=== PATIENT | male | born 1970 | race Two or more races ===

== ENCOUNTER 2020-11-08 17:05 | Outpatient (REF) | payer OTHER, SELFPAY | END 2020-11-08 17:06 | disposition home or self-care (01) | LOC: HO.LAB 17:05 | PROVIDERS: Visit Provider Internal Medicine | DX: Z20.828 Contact with and (suspected) exposure to other viral communicable diseases (principal) | CPT/HCPCS: C9803; U0003 ==

== ENCOUNTER 2022-03-21 11:58 | Emergency (ER) | payer OTHER, SELFPAY ==
[2022-03-21 13:23] VITALS: BP 113/67; PULSE 105; RESP 18; TEMP 36.1; O2SAT 96; BMI 29.5
[2022-03-21] MEDS: Ketorolac Tromethamine 30 MG/ML VIAL IM (14:31)
--- NOTE | 2022-03-21 14:41 | ED.GENADULT ---
HPI - General Adult General Chief complaint: Back Pain/Injury Stated complaint: back pain Time Seen by Provider: 03/21/22 14:19 Source: patient Mode of arrival: ambulatory Limitations: no limitations History of Present Illness HPI narrative: 51-year-old male with past medical history of disc herniation presents to ED for back pain after trying to pull something out of the trunk. Patient states he was bending over in his trunk and when the backed up to straight position grabbing objects he felt sudden back pain. Patient denies any blunt trauma to the back, 4th to the ground, abdominal pain, nausea, vomiting, flank pain, fever, chills, hematuria, testicular pain, or dysuria Related Data Previous Rx's Medication Instructions Recorded cyclobenzaprine 10 mg tablet 10 mg PO TID PRN 7 Days #21 tab 03/21/22 ketorolac 10 mg tablet 10 mg PO Q6H 5 Days #20 tab 03/21/22 prednisone 20 mg tablet 40 mg PO DAILY 5 Days #10 tab 03/21/22 Allergies Allergy/AdvReac Type Severity Reaction Status Date / Time No Known Allergies Allergy Verified 03/21/22 13:22 Review of Systems Review of Systems: Back pain Yes all other systems are reviewed and are negative PMFSH Social History Social History Advance Directives: No Advance Directives Information Provided: No Physical Exam ED Vital Signs: Vital Signs - 24 hr 03/21/22 13:23 Temperature 97 F Pulse Rate 105 H Respiratory Rate 18 Blood Pressure 113/67 Pulse Oximetry 96 BMI result Body Mass Index 29.5 Const General: cooperative, healthy appearing, comfortable, no acute distress, well developed, alert, awake and Physically active Orientation/consciousness: oriented to time and patient oriented x3 Eyes General: appearance normal, both eyes and all related structures Neck Neck: Yes normal visual inspection, Yes full ROM, Yes no lymphadenopathy, Yes no meningeal signs, Yes trachea midline, Yes supple, No anterior neck swelling and No tender Chest Chest palpation & inspection: normal inspection of the chest and normal palpation of entire chest wall Resp Effort & Inspection: normal respiratory effort and able to speak in complete sentences Cardio Jugular venous distension: no JVD Heart sounds: S1 normal heart sound present and S2 normal heart sound present GI Inspection: Yes normal to inspection and No abdominal wall ecchymosis Palpation (GI): Soft to palpation, not firm, nontender, no guarding and not rigid General: No CVA tenderness and Yes no CVA tenderness Back/Spine/Pelvis Other: Positive for back pain on range of motion. Back: no CVA tenderness, No CVA tenderness and back tenderness ( left lumBar) Skin General skin exam: no rashes or lesions noted and elasticity normal Neuro General: oriented to time, patient oriented x3, gait normal and no meningeal signs Cranial nerves: Yes CN's II-XII intact bilaterally Extrem General: Yes normal to inspection and Yes full ROM Psych Appearance: grossly normal, well kempt and not disheveled Course Course Course Narrative: No need for repeat imaging. No blunt trauma to the back or abdomen. History of known disc herniation. Pain med ordered. Reevaluation(s) Reevaluation #1: Pain improved after receiving Toradol. Patient is safe for discharge. Time: 14:48 Medical Decision Making [facility] Narrative Medical decision making narrative: Back pain Discharge Plan Discharge Clinical Impression: Lumbar radiculopathy, Back strain Patient Disposition: Home, Self-Care Instructions: Muscle Strain (DC), Lumbar Radiculopathy (ED) Additional Instructions: Se le donald? de kaitlynn con analg?sicos, relajantes musculares y esteroides. Regrese al servicio de urgencias de inmediato por cualquier incontinencia urinaria/intestinal, entumecimiento/hormigueo/par?lisis de las extremidades inferiores, dolor abdominal, disuria, hematuria, dolor en el costado, fiebre, escalofr?os, incapacidad para caminar o cualquier otro s?ntoma preocupante. Por favor, loretta un seguimiento con el proveedor de atenci?n primaria. Prescriptions: New ketorolac 10 mg tablet 10 mg PO Q6H 5 Days Qty: 20 0RF Rx Instructions: Patient received toradol 30mg IM in the ED. prednisone 20 mg tablet 40 mg PO DAILY 5 Days Qty: 10 0RF cyclobenzaprine 10 mg tablet 10 mg PO TID PRN (Reason: muscle spasm) 7 Days Qty: 21 0RF Rx Instructions: side effect is drowsiness. Do not take at work or while driving. Interventions: ED Discharge Assessment Last Done: 03/21/22 15:11 Discharge Date/Time: 03/21/22 15:12 Print Language: Anguillan
== END 2022-03-21 15:12 | disposition home or self-care (01) ==
PROVIDERS: Emergency Provider Emergency Medicine; PCP Internal Medicine
DX: S39.012A Strain of muscle, fascia and tendon of lower back, initial encounter (principal); M54.16 Radiculopathy, lumbar region; X50.9XXA Other and unspecified overexertion or strenuous movements or postures, initial encounter; Y93.9 Activity, unspecified; Y92.9 Unspecified place or not applicable; Y99.9 Unspecified external cause status
CPT/HCPCS: 96372; 99282; 99284; J1885

== ENCOUNTER 2022-04-01 11:00 | Outpatient (RCR) | payer OTHER, SELFPAY | END 2022-04-05 08:09 | disposition home or self-care (01) | LOC: HO.PT 11:00 | PROVIDERS: PCP Internal Medicine; Visit Provider Internal Medicine | DX: M25.561 Pain in right knee (principal) | CPT/HCPCS: 97110; 97140; 97162 ==

== ENCOUNTER 2022-06-20 09:38 | Outpatient (REF) | payer OTHER, SELFPAY ==
--- NOTE | ~2022-06-20 | XR_ITS ---
EXAMINATION: XR lumbar spine 4V min CLINICAL INFORMATION: Reason for Exam LUMBAGO WITH SCIATICA LEFT SIDE COMPARISON: None TECHNIQUE: 5 views of the lumbar spine FINDINGS: 5 nonrib-bearing lumbar-type vertebral bodies. Vertebral body heights are maintained. Grade 1 retrolisthesis of L2 on L3 and L4 on L5. No pars defects. Moderate multilevel degenerative disc disease with loss of disc space height, facet arthropathy and disc osteophyte complexes. This is worst at L4-L5. Paravertebral soft tissues are unremarkable. XR/XR lumbar spine 4V min IMPRESSION: * Moderate spondylosis of the lumbar spine, as above detailed. * Spondylolisthesis, as above detailed.
[2022-06-20 09:58] LABS: MANUAL DIFF FLAG NO
[2022-06-20 10:37] LABS: Basophils Absolute Auto 0.1 X10*3/uL (0.0-0.2); Basophils Percent Auto 1.3 % (0-2); Eosinophils Absolute Auto 0.2 X10*3/uL (0.0-0.4); Hematocrit 42.4 % (42.0-52.0); Hemoglobin 14.5 g/dl (14.0-18.0); Imm Gran Abs Auto 0.04 X10*3/uL (0.00-0.03); Imm Gran Pct Auto 0.7 % (0.0-0.4); Lymphocytes Absolute Auto 1.1 X10*3/uL (1.2-4.9); Lymphocytes Percent Auto 18.4 % (20-40); Mean Corpuscular HGB Conc 34.2 g/dl (31.0-36.0); Mean Corpuscular Volume 90.6 fL (80.0-98.0); Mean Platelet Volume 10.3 fL (9.4-12.4); Monocytes Absolute Auto 0.6 X10*3/uL (0.1-1.2); Monocytes Percent Auto 9.9 % (2-11); Neutrophils Absolute Auto 3.9 x10*3/uL (2.0-8.3); Neutrophils Percent Auto 65.7 % (45-73); Platelet Count 299 X10*3/uL (160-400); Red Blood Count 4.68 X10*6/uL (4.60-5.80); Red Cell Distribution Width 11.9 % (11.0-16.0); White Blood Count 5.9 X10*3/uL (4.8-10.8)
[2022-06-20 10:44] LABS: Estimated Average Glucose 143 mg/dL; Hemoglobin A1c % 6.6 %
[2022-06-20 11:15] LABS: Creatinine Urine 154.13 mg/dL; Microalbum/Creatinine Ratio Ur 9.7 ug/mg cr
[2022-06-20 11:21] LABS: Alanine Aminotransferase 116 U/L (0-40); Albumin Level 4.9 g/dL (3.5-5.0); Alkaline Phosphatase 82 U/L (39-117); Anion Gap 17 (12-20); Aspartate Amino Transferase 62 U/L (5-37); Bilirubin Direct 0.3 mg/dL (0.0-0.5); Bilirubin Total 0.8 mg/dL (0.0-1.0); Blood Urea Nitrogen 18 mg/dL (9-16); Calcium 9.9 mg/dL (8.4-10.2); Carbon Dioxide 29 mmol/L (22-29); Chloride 99 mmol/L (96-108); Cholesterol 260 mg/dL; Estimated Glomerular Filt Rate > 60; Glucose Random 129 mg/dL (60-115); HDL Cholesterol 53 mg/dL; LDL Cholesterol Calculated 171 mg/dl; Potassium 5.7 mmol/L (3.3-5.1); Sodium 139 mmol/L (135-145); Total Protein 7.5 g/dL (6.5-8.0); Triglycerides 182 mg/dL
[2022-06-20 11:37] LABS: Vitamin D 25-OH Total 28.3 ng/mL (>30)
== END 2022-06-20 09:39 | disposition home or self-care (01) ==
LOC: HO.XRAY 09:38
PROVIDERS: PCP Internal Medicine; Visit Provider Internal Medicine
DX: Z00.00 Encounter for general adult medical examination without abnormal findings (principal); M54.42 Lumbago with sciatica, left side
CPT/HCPCS: 36415; 72110; 80048; 80061; 80076; 82043; 82306; 83036; 85025

== ENCOUNTER 2024-06-03 13:16 | Outpatient (REF) | payer OTHER, SELFPAY ==
--- NOTE | ~2024-06-03 | XR_ITS ---
EXAMINATION: XR KNEE, LEFT CLINICAL INFORMATION: Pain of left knee for 2 weeks COMPARISON: None available. TECHNIQUE: Four views of the left knee. FINDINGS: No specific source of pain is identified. The joint spaces are well-preserved. Alignment is normal at patellofemoral and tibiofemoral compartments. No arthritic disease process or joint effusion. There is an enthesophyte at the upper pole of the patella. Question presence of mild soft tissue swelling in the prepatellar area. XR/XR knee LT 4V IMPRESSION: No acute osseous injury at the left knee. No arthritic disease, fracture or joint effusion.
== END 2024-06-03 13:17 | disposition home or self-care (01) ==
LOC: HO.HHCX 13:16
PROVIDERS: Visit Provider Internal Medicine
DX: M25.562 Pain in left knee (principal)
CPT/HCPCS: 73564

== ENCOUNTER 2024-09-13 15:25 | Outpatient (REF) | payer OTHER, SELFPAY ==
[2024-09-13 16:56] LABS: Creatinine Urine 198.04 mg/dL; Microalbum/Creatinine Ratio Ur 16.1 ug/mg cr (<30)
[2024-09-13 17:06] LABS: Alanine Aminotransferase 74 U/L (0-40); Albumin Level 4.7 g/dL (3.5-5.0); Anion Gap 18 (12-20); Aspartate Amino Transferase 71 U/L (5-37); Bilirubin Total 0.6 mg/dL (0.0-1.0); Blood Urea Nitrogen 19 mg/dL (9-16); Calcium 10.2 mg/dL (8.4-10.2); Carbon Dioxide 24 mmol/L (22-29); Chloride 101 mmol/L (96-108); Cholesterol 275 mg/dL (<200); Estimated Glomerular Filt Rate > 60; Glucose Random 114 mg/dL (60-115); HDL Cholesterol 52 mg/dL (>40); LDL Cholesterol Calculated 146 mg/dL (<100); Potassium 3.9 mmol/L (3.3-5.1); Sodium 139 mmol/L (135-145); Total Protein 7.7 g/dL (6.5-8.0); Triglycerides 388 mg/dL (<150)
[2024-09-13 17:49] LABS: Alkaline Phosphatase 105 U/L (39-117)
[2024-09-13 18:36] LABS: Reflex LDLD? No
[2024-09-15 23:49] LABS: TS Negative Control Passed; TS Panel A 2; TS Panel B 1; TS Positive Control Passed; TSpotTB Negative (Negative)
== END 2024-09-13 15:26 | disposition home or self-care (01) ==
LOC: HO.HHCL 15:25
PROVIDERS: Visit Provider Internal Medicine
DX: E11.9 Type 2 diabetes mellitus without complications (principal); Z11.1 Encounter for screening for respiratory tuberculosis
CPT/HCPCS: 36415; 80053; 80061; 82043; 82570; 86481

== ENCOUNTER 2024-12-07 11:37 | Outpatient (REF) | payer OTHER, SELFPAY ==
--- OUTSIDE RECORDS SUMMARY | 2024-12-07 12:54 | XMS_ITS | Encounter Summary ---
Author Organization [employer] Address [address] [facility] [address] [place] [address] Care Team Providers Care Human Resources Benefits Assistant Name Role Phone Huyen Palm MD Primary Care Provide r Encounter Details Date Type Department Care Team (Late st Contact Info) Description 12/16/2022 Orders Only [facility] [address] [place] [address] Jennifer Dodd LPN Social History Tobacco Use Types Packs/Day Years Used Date Smoking Tobacco: Never Assessed Sex and Gender Information Value Date Recorded Sex Assigned at Male 09/09/2022 10:37 AM EDT Legal Sex Male 10:37 AM EDT Gender Identity Male 09/09/2022 10:37 AM EDT Sexual Orientation Straight 09/09/2022 10 :37 AM EDT documented as of this encounter Plan of Treatment Not on file documented as of this encounter Visit Diagnoses Not on filedocumented in this encounter Care Teams Human Resources Benefits Assistant Relationship Specialty Start Date End Date Huyen Palm MD [address] [place] [id number] PCP - General Family Medicine 03/01/21 documented as of this encounter
--- OUTSIDE RECORDS SUMMARY | 2024-12-07 12:54 | XMS_ITS | Encounter Summary ---
Author Organization [employer] Address [address] [facility] [address] [place] [address] Care Team Providers Care Jingle Writer Name Role Phone Huyen Palm MD Primary Care Provide r Encounter Details Date Type Department Care Team (Late st Contact Info) Description 12/06/2024 Telephone [facility] [address] [place], [place] [phone] Huyen Palm MD [address] [place], [place] [phone] Social History Tobacco Use Types Packs/Day Years Used Date Smoking Tobacco: Some Days Cigarettes Passive Smoke Exposure: Current Smokeless Tobacco: Never Alcohol Use Standard Drinks/Week Comments Never 0 (1 standard drink = 0.6 oz pur e alcohol) Alcohol Answer Date Recorded Frequency of Alcohol Consumption Not on file 06/02/2024 Average Number of Drinks Not on file 024 Frequency of Binge Drinking Not on file 05/11 Score 0 06/02/2024 Depression Answer Date Recorded Patient Health Questionnaire-9 Score 0 06/02/2024 Patient Health Questionnaire-9 Score 0 06/02/2024 Last PHQ-9: Questionnaire Data Not on file 0 06/02/2024 Housing Stability Answer Date Recorded What is your housing situation today? I have kaylin baird 06/02/[address] you li ve. Do you have problems with any of the following? None of the above 06/02/2024 Food Insecurity Answer Date Recorded Within the past 12 months, y ou worried that your food would run out before you got money to buy more: Never True 06/02/2024 Within the past 12 months,th e food you bought just didn't last and you didn't have enough money to get more: Never True Transportation Answer Date Recorded In the past 12 months, has l ack of transportation kept you from medical appts, meetings, work or from getting things needed for daily living? No 06/02/2024 Utilities Answer Date Recorded In the past 12 months, has t he electric, gas, oil or water company threatened to shut off services in your home? No 06/02/2024 Depression Answer Date Recorded Patient Health Questionnaire-2 Score 0 06/02/2024 Internet Access Answer Date Recorded Internet Access Q1 No 07/12/2024 Internet Access Q2 I do not want or need it 12/2023 Sex and Gender Information Value Date Recorded Sex Assigned at Male 09/09/2022 10:37 AM EDT Legal Sex Male 10:37 AM EDT Gender Identity Male 09/09/2022 10:37 AM EDT Sexual Orientation Straight 09/09/2022 10 :37 AM EDT documented as of this encounter Miscellaneous Notes * Telephone Encounter - Huyen Villatoro - 12/06/2024 11:51 AM EST Number not in service documented in this encounter Plan of Treatment Not on file documented as of this encounter Visit Diagnoses Not on filedocumented in this encounter Additional Health Concerns Assessment Noted Time PHQ-9 Depression Total Score: 0 06/02/20 24 3:09 PM EDT documented as of this encounter Care Teams Jingle Writer Relationship Specialty Start Date End Date Huyen Palm MD [address] [place] [id number] PCP - General Family Medicine 03/01/21 documented as of this encounter
--- OUTSIDE RECORDS SUMMARY | 2024-12-07 12:54 | XMS_ITS | Encounter Summary ---
Author Organization [employer] Address [address] [facility] [address] [place] [address] Care Team Providers Care Academic Affairs Vice President Name Role Phone Huyen Palm MD Primary Care Provide r Encounter Details Date Type Department Care Team (Late st Contact Info) Description 12/07/2024 10:45 AM EST Immunization [facility] [address] [place] [address] Bernarda Mcrae LPN Encounter for immunization (Primary Dx) Social History Tobacco Use Types Packs/Day Years [...] AM EDT documented as of this encounter Progress Notes * Bernarda Mcrae, JOSE - 12/07/2024 10:45 AM EST Subjective Patient ID: Denny Magaña is a 53 y.o. male who presents here to receive Fluarix Trivalent, Preservative-Free, [id number] seasonal Influenza vaccine. Pt's Influenza Intake form, and self reporting, indicated no contraindication to vaccination. Pt educated as to potential side effects of vaccine including fever, muscle aches & headache. Pt tolerated injection well and monitored for 15 minutes post injection. Pt here for , 3rd of 3 dose series, Engerix, Hepatitis B, Vaccine. Patient history and self attestation indicate no contraindication to vaccination. Pt advised of possible side effects of vaccine including fever, headache and fatigue and advised to stay for 15 minutes monitoring post-vaccine. Pt states understanding and agrees to vaccination. Pt here for [id number] [employer], [employer], 12 yr+, vaccine. Pt questionnaire indicates that ptis eligible to receive vaccine. Pt denies allergies to vaccine components. Pt educated as to signs/symptoms of Covid infection and potential side effects of vaccination including low grade fevers, intermittent chills, fatigue, body aches and swelling/redness/pain at injection site. Pt informed of benefits of adequate hydration post vaccinations. Pt tolerated injection well and monitored for 15 minutes This action has been completed by Ros Robertson , a student nurse from [employer] , in collaboration with Bernarda Mcrae LPN documented in this encounter Plan of Treatment Not on file documented as of this encounter Visit Diagnoses Diagnosis Encounter for immunization- Primary documented in this encounter Additional Health Concerns Assessment Noted Time PHQ-9 Depression Total Score: 0 06/02/20 24 3:09 PM EDT documented as of this encounter Care Teams Academic Affairs Vice President Relationship Specialty Start Date End Date Huyen Palm MD [address] [place] [id number] PCP - General Family Medicine 03/01/21 documented as of this encounter
--- OUTSIDE RECORDS SUMMARY | 2024-12-07 12:54 | XMS_ITS | Encounter Summary ---
Author Organization [employer] Address [address] [facility] [address] [place] [address] Care Team Providers Care Director Of Scout Work Name Role Phone Huyen Palm MD Primary Care Provide r Reason for Visit * Reason Onset Date Comments JANUARY RECALL 11/26/2024 Encounter Details Date Type Department Care Team ([facility] st Contact Info) Description 11/26/2024 Telephone [facility] [address] [place] [address] Lexy Ayala MA JANUARY RECALL Social History Tobacco Use Types Packs/Day Years [...] encounter Miscellaneous Notes * Telephone Encounter - Lexy Ayala [place] - 11/26/2024 1:28 PM EST TC- Patient to schedule an appt (January) with F\U unable to reach.Mailed recall letter. documented in this encounter Plan of Treatment Not on file documented as of this encounter Visit Diagnoses Not on filedocumented in this encounter Additional Health Concerns Assessment Noted Time PHQ-9 Depression Total Score: 0 06/02/20 24 3:09 PM EDT documented as of this encounter Care Teams Director Of Scout Work Relationship Specialty Start Date End Date Huyen Palm MD [address] [place] [address] PCP - General Family Medicine 03/01/21 documented as of this encounter
--- OUTSIDE RECORDS SUMMARY | 2024-12-07 12:54 | XMS_ITS | Clinical Summary ---
Author Organization [facility] Address [address] [place] [address] Care Team Providers Care Marsh Buggy Operator Name Role Phone Unavailable Primary Care Provider Unavailabl e Social History Tobacco Use Types Packs/Day Years Used Date Smoking Tobacco: Never Assessed Sex and Gender Information Value Date Recorded Sex Assigned at Not on file Gender Identity Not on file Sexual Orientation Not on file Plan of Treatment Health Maintenance Due Date Last Done Comments DTaP,Tdap,and Td Vaccines (1 - Tdap) 1987 Hepatitis B Vaccines (1 of 3 - 19+ 3-dose series) 1987 Zoster Vaccines (1 of 2) 2018 COVID-19 Vaccine (2023-2 5 season) 2024 Influenza Vaccine (#1) 2024 HIB Vaccines Aged Out No longer eligi ble based on patient's age to complete this topic HPV Vaccines Aged Out No longer eligi ble based on patient's age to complete this topic Hepatitis A Vaccines Aged Out No long er eligible based on patient's age to complete this topic IPV Vaccines Aged Out No longer eligi ble based on patient's age to complete this topic MMR Vaccines Aged Out No longer eligi ble based on patient's age to complete this topic Meningococcal ACWY Vaccine Aged Out N o longer eligible based on patient's age to complete this topic Pneumococcal Vaccine: Pediat rics (0 to 5 Years) and At-Risk Patients (6 to 64 Years) Aged Out No longer eligible b ased on patient's age to complete this topic RSV Immunization Patients Un wendy 20 months Aged Out No longer eligible b ased on patient's age to complete this topic Varicella Vaccines Aged Out No longer eligible based on patient's age to complete this topic
--- OUTSIDE RECORDS SUMMARY | 2024-12-07 12:54 | XMS_ITS | Clinical Summary ---
Author Organization [employer] Address [address] [place] [address] Care Team Providers Care Spray Unit Feeder Name Role Phone Huyen Palm MD Primary Care Provide r Allergies No known active allergies Medications PARoxetine (Paxil) 30 MG tabletIndications: Mood disorder ([facility]) Take 1 tablet (30 mg) by mouth in the morning. 30 tablet 3 023 Active TRUEplus Lancets 33G miscIndications:Ty pe 2 diabetes mellitus without complication, without long-term current use of insulin ([facility]) TEST BLOOD SUGAR TWICE DAILY 100 each 11 023 Active naproxen (Naprosyn) 500 MG tabletIndications: Acute back pain with sciatica, unspecified laterality take 1 tablet by oral route 2 times every day with food 30 tablet 1 023 Active Alcohol Swabs (Alcohol Prep) 70 % padsIndications:Ty pe 2 diabetes mellitus without complication, unspecified whether intermediate insulin use ([facility]) USE TWICE DAILY 100 each 11 023 Active FREESTYLE LITE test strip TEST BLOOD SUGAR TWICE DAILY 100 strip 11 023 Active FREESTYLE LITE test strip TEST BLOOD SUGAR TWICE DAILY 023 Active Trulicity 1.5 MG/0.5ML solution pen-injectorIndica tions:Type 2 diabetes mellitus with other specified complication, unspecified whether terminal press operator insulin use ([facility]) INJECT ONE PEN (=1.5MG) SUBCUTANEOUSLY ONCE A WEEK DIRECTED 2 mL 3 023 Active aspirin (Aspirin Low Dose) 81 MG chewable tabletIndications: Primary hypertension CHEW AND SWALLOW 1 TABLET BY MOUTH ONCE DAILY 90 tablet 1 023 Active ezetimibe (Zetia) 10 MG tabletIndications: Other hyperlipidemia Take 1 tablet (10 mg) by mouth in the morning. 90 tablet 1 023 Active famotidine (Pepcid) 20 MG tabletIndications: Chronic gastroesophageal reflux disease Take 1 tablet (20 mg) by mouth in the morning. 90 tablet 1 023 Active dapagliflozin (Farxiga) 5 MGIndications:Type 2 diabetes mellitus with hyperglycemia, without long-term current use of insulin ([facility]) Take 1 tablet (5 mg) by mouth Once per day. 30 tablet 11 024 03/03 Active omega-3 (Fish Oil) 1000 MG capsuleIndications :Essential hypertension TAKE 1 CAPSULE BY MOUTH THREE TIMES DAILY 90 capsule 4 024 Active amLODIPine (Norvasc) 10 MG tabletIndications: Primary hypertension TAKE 1 TABLET BY MOUTH ONCE DAILY 90 tablet 1 024 Active atorvastatin (Lipitor) 10 MG tabletIndications: Type 2 diabetes mellitus with hyperglycemia, without long-term current use of insulin ([facility]) Take 1 tablet (10 mg) by mouth Once per day. 30 tablet 11 024 06/08 Active glipiZIDE XL (Glucotrol XL) 2.5 MG 24 hr tabletIndications: Type 2 diabetes mellitus without complication, with long-term current use of insulin ([facility]) TAKE 1 TABLET BY MOUTH EVERY DAY WITH LUNCH 90 tablet 1 024 Active gabapentin (Neurontin) 600 MG tabletIndications: Mood disorder ([facility]),Polyarth ralgia TAKE 1 TABLET BY MOUTH TWICE DAILY 60 tablet 2 024 Active albuterol (Ventolin HFA) 108 (90 Base) MCG/ACT inhalerIndications :Asthma, unspecified asthma severity, unspecified whether complicated, unspecified whether persistent INHALE 2 PUFFS BY MOUTH EVERY 4 TO 6 HOURS NEEDED 18 g 3 024 Active metFORMIN (Glucophage) 1000 MG tabletIndications: Type 2 diabetes mellitus without complication, with long-term current use of insulin ([facility]) TAKE 1 TABLET BY MOUTH TWICE DAILY IN THE MORNING AND IN THE EVENING WITH MEALS 180 tablet 025 Active metFORMIN (Glucophage) 1000 MG tabletIndications: Type 2 diabetes mellitus without complication, with long-term current use of insulin ([facility]) TAKE 1 TABLET BY MOUTH TWICE DAILY IN THE MORNING AND IN THE EVENING WITH MEALS 180 tablet 1 024 12/06 Discontinued Active Problems Problem Noted Date Diagnosed Date Tuberculosis screening 09/13/2024 Infected wound 09/13/2024 Assessment & Plan (09/13/2024 4:41 PM EST): Maintain area dry and clean Left foot pain 06/02/2024 Acute pain of left knee 06/02/2024 TUCKER (obstructive sleep apnea) 03/03/2024 Assessment & Plan (03/03/2024 2:10 PM EDT): I will refer patient back to sleep medicine [facility] for his inspire device to be revise Acute pain of right shoulder 03/03/2024 Assessment & Plan (03/03/2024 2:12 PM EDT): Acetaminophen PRN Polyarthralgia 09/02/2023 Bilateral impacted cerumen 05/27/2023 Assessment & Plan (05/27/2023 2:13 PM EDT): Use debrox for 5 days then come to nurse visit for ear lavage Tinea corporis 05/27/2023 Elevated LFTs 01/17/2023 Neck pain 01/17/2023 Pain in eye 01/17/2023 Vascular insufficiency 01/17/2023 Chronic ankle pain 01/17/2023 Acute back pain with sciatica 12/04/2022 Chronic low back pain 12/04/2022 Assessment & Plan (02/27/2023 9:47 AM EDT): Control with naproxen and cyclobenzaprine PRN, patient went to PT and did well Essential hypertension 12/04/2022 Assessment & Plan (09/13/2024 4:40 PM EST): - Aerobic exercise to reduce BP. Initial goal of 30 min walk 3-5x/week. Increase as tolerated. - low-sodium diet (goal: <2g/day) and heart healthy diet such as DASH to reduce BP and prevent ASCVD. - Home BP monitoring 1-2 x day with goal of <140/90. - Seek immediate medical attention for chest pain, palpitations, SOB, syncope, or sudden changes in mental status. - Do not change or discontinue current prescriptions without first consulting health care provider Assessment & Plan (06/02/2024 4:38 PM EDT): - Aerobic exercise to reduce BP. Initial goal of 30 min walk 3-5x/week. Increase as tolerated. - low-sodium diet (goal: <2g/day) and heart healthy diet such as DASH to reduce BP and prevent ASCVD. - Home BP monitoring 1-2 x day with goal of <140/90. - Seek immediate medical attention for chest pain, palpitations, SOB, syncope, or sudden changes in mental status. - Do not change or discontinue current prescriptions without first consulting health care provider Assessment & Plan (03/03/2024 2:11 PM EDT): -I advise patient to take hs medication every day without missing any dose - Aerobic exercise to reduce BP. Initial goal of 30 min walk 3-5x/week. Increase as tolerated. - low-sodium diet (goal: <2g/day) and heart healthy diet such as DASH to reduce BP and prevent ASCVD. - Home BP monitoring 1-2 x day with goal of <140/90. - Seek immediate medical attention for chest pain, palpitations, SOB, syncope, or sudden changes in mental status. - Do not change or discontinue current prescriptions without first consulting health care provider Assessment & Plan (09/02/2023 1:36 PM EDT): - Aerobic exercise to reduce BP. Initial goal of 30 min walk 3-5x/week. Increase as tolerated. - low-sodium diet (goal: <2g/day) and heart healthy diet such as DASH to reduce BP and prevent ASCVD. - Home BP monitoring 1-2 x day with goal of <140/90. - Seek immediate medical attention for chest pain, palpitations, SOB, syncope, or sudden changes in mental status. - Do not change or discontinue current prescriptions without first consulting health care provider Assessment & Plan (05/27/2023 2:12 PM EDT): - Aerobic exercise to reduce BP. Initial goal of 30 min walk 3-5x/week. Increase as tolerated. - low-sodium diet (goal: <2g/day) and heart healthy diet such as DASH to reduce BP and prevent ASCVD. - Home BP monitoring 1-2 x day with goal of <140/90. - Seek immediate medical attention for chest pain, palpitations, SOB, syncope, or sudden changes in mental status. - Do not change or discontinue current prescriptions without first consulting health care provider Assessment & Plan (02/27/2023 9:45 AM EDT): Maintenance: BMP: ordered today Lipid Panel: ordered today - Aerobic exercise to reduce BP. Initial goal of 30 min walk 3-5x/week. Increase as tolerated. - low-sodium diet (goal: <2g/day) and heart healthy diet such as DASH to reduce BP and prevent ASCVD. - Home BP monitoring 1-2 x day with goal of <140/90. - Seek immediate medical attention for chest pain, palpitations, SOB, syncope, or sudden changes in mental status. - Do not change or discontinue current prescriptions without first consulting health care provider Mild intermittent asthma 12/04/2022 Mood disorder 12/04/2022 Obstructive sleep apnea syndrome 12/04/2022 Assessment & Plan (02/27/2023 9:47 AM EDT): continue to follow with specialist Steatosis of liver 12/04/2022 Type 2 diabetes mellitus with hyperglycemia 11/11 Assessment & Plan (09/13/2024 4:40 PM EST): Diabetes is: controlled - Lab Results Component Value Date HGBA1C 7.1 (A) 09/13/2024 HGBA1C 6.7 (A) 06/02/2024 HGBA1C 9.7 (A) 03/03/2024 - Lab Results Component Value Date MICROALBUR 0.2 01/29/2021 CREATININE 1.03 02/27/2023 -Changes: none - Diabetic eye exam:up to date - Diabetic foot exam:up to date - Continue lifestyle modifications - Continue current medications - Follow up: 3 months Assessment & Plan (03/03/2024 2:13 PM EDT): Diabetes is: not controlled - Lab Results Component Value Date HGBA1C 9.7 (A) 03/03/2024 HGBA1C 6.5 (A) 09/02/2023 HGBA1C 6.0 05/27/2023 - Lab Results Component Value Date MICROALBUR 0.2 01/29/2021 CREATININE 1.03 02/27/2023 -Changes: c/w metformin, glipizide, I added today farxiga 5 mg and I drug and alcohol counsellor him about diabetic diet and exercise - Diabetic eye exam:pending - Diabetic foot exam:pending - Follow up: 3 months Assessment & Plan (09/02/2023 1:36 PM EDT): - Lab Results Component Value Date HGBA1C 6.5 (A) 09/02/2023 HGBA1C 6.0 05/27/2023 HGBA1C 6.3 (A) 02/27/2023 - Lab Results Component Value Date MICROALBUR 0.2 01/29/2021 CREATININE 1.03 02/27/2023 - Continue lifestyle modifications - Continue current medications Assessment & Plan (05/27/2023 2:12 PM EDT): - Lab Results Component Value Date HGBA1C 6.0 05/27/2023 HGBA1C 6.3 (A) 02/27/2023 HGBA1C 7.0 (H) 01/29/2021 - Lab Results Component Value Date MICROALBUR 0.2 01/29/2021 CREATININE 1.03 02/27/2023 - Diabetic eye exam: up to date - Diabetic foot exam: up to date - Continue lifestyle modifications - Continue current medications Assessment & Plan (02/27/2023 9:46 AM EDT): A1c today 6.2 glucose 122 - Lab Results Component Value Date HGBA1C 7.0 (H) 01/29/2021 - Lab Results Component Value Date MICROALBUR 0.2 01/29/2021 CREATININE 1.02 06/20/2022 CREATININE 1.02 06/20/2022 - Diabetic eye exam: up to date - Diabetic foot exam: done today - Continue lifestyle modifications - Continue current medications - Encounters Date Type Department Care Team Description 12/07/2024 10:45 AM EST Immunization [facility] [place] [phone] Bernarda Mcrae LPN Encounter for immunization (Primary Dx) 12/07/2024 Travel 12/06/2024 Telephone [facility] [place] [place] [phone] Huyen Palm MD 12/05/2024 Refill [facility] [place] [address] Huyen Palm MD Type 2 diabetes mellitus without complication, with long-term current use of insulin (CMS/[facility]) 11/26/2024 Telephone [facility] [place] [phone] Lexy Ayala MA JANUARY RECALL 10/21/2024 Telephone [facility] [place] [address] Lexy Ayala MA Durable Medical Equipment 10/18/2024 Telephone [facility] [place] [address] Lexy Ayala MA Durable Medical Equipment (/) 10/14/2024 Telephone [facility] [place] [address] Lexy Ayala MA Durable Medical Equipment 10/14/2024 Telephone [facility] [place] [address] Huyen Palm MD 09/23/2024 Refill [facility] [place] [address] Huyen Palm MD Asthma, unspecified asthma severity, unspecified whether complicated, unspecified whether persistent 09/13/2024 3:30 PM EST Office Visit [facility] [place] [address] Huyen Palm MD Essential hypertension (Primary Dx); Type 2 diabetes mellitus without complication, without long-term current use of insulin (CMS/HCC); Type 2 diabetes mellitus with hyperglycemia, without long-term current use of insulin (CMS/HCC); Tuberculosis screening; Infected wound; Dietary counseling; Exercise counseling 09/13/2024 Travel 09/10/2024 Telephone [facility] [address] [place] [address] Chiqui Mack MA CHART PREP 09/06/2024 Patient Outreach [facility] [address] [place] [address] Huyen Palm MD Pre-visit Planning (SDOH unable to reach, Number disconnected. ) from Last 3 Months Immunizations Name Administration Dates Next Due Hep B, adult 12/07/2024,07/05/2024,06/03/2024 Influenza injectable quadriv alent preservative free 09/02/2023,12/28/2020,09/26/2018,2017 Influenza, seasonal, injecta ble, preservative free 12/07/2024,10/16/2022 [email or web address] SARS-CoV-2 Vaccination 01/24/2021 Pfizer Covid-19 Vaccine 12+ 12/07/2024, Pfizer Covid-19 Vaccine 12+ Bivalent 10/16/2022 Pneumococcal Conjugate PCV 20 06/02/2024 Tdap 06/03/2024 Zoster, Recombinant 02/28/2021,12/28/2020 Social History Tobacco Use Types Packs/Day Years Used Date Smoking Tobacco: Some Days Cigarettes Passive Smoke Exposure: Current Smokeless Tobacco: Never Tobacco Cessation:Ready to Q uit: Not Asked; Counseling Given: Not Answered Alcohol Use Standard Drinks/Week Comments Never 0 [...] Orientation Straight 09/09/2022 10 :37 AM EDT Last Filed Vital Signs Vital Sign Reading Time Taken Comments Blood Pressure 136/78 09/13/2024 3:02 PM EST Pulse 94 09/13/2024 2:33 PM EST Temperature 36.4 ??C (97.6 ??F) 09/13/2024 2:33 PM ES T Respiratory Rate 20 09/13/2024 2:33 PM EST Oxygen Saturation 94% 09/13/2024 2:33 PM EST Inhaled Oxygen Concentration - - Weight 105 kg (230 lb 12.8 oz) 09/13/2024 2:33 P M EST Height 188 cm (6' 2 ) 09/13/2024 2:33 PM EST Body Mass Index 29.63 09/13/2024 2:33 PM EST Plan of Treatment Health Maintenance Due Date Last Done Comments CT Colonography 1968 Colonoscopy 1968 Colorectal Cancer Screening 1968 FIT DNA/Cologuard 1968 FIT 1968 FOBT 1968 HIV Screening 1968 Sigmoidoscopy 1968 Eye Exam 1978 Hepatitis C Screening 1986 Hepatitis A Vaccines (1 of 2 - Risk 2-dose series) 1987 Diabetes: Foot Exam 02/28/2024 02/27/2023, Diabetes: Hemoglobin A1C 12/14/2024 024, 06/02/2024, 03/03/2024, Additional history exists Alcohol/Substance Use Screening 06/02/2025 06/02/2024 Depression Screening 06/02/2025 06/02/2024, 06/02/20 SDOH Screening 06/02/2025 06/02/2024 Diabetes: Urine Protein Screening 09/13/2025 09/13/2024, 02/27/2023, 06/20/2022, Additional history exists Lipid Panel 09/13/2025 09/13/2024, 02/09, 06/20/2022, Additional history exists Tobacco Screening 09/13/2025 09/13/2024 DTaP/Tdap/Td Vaccines (2 - Td or Tdap) 06/03/2034 06/03/2024 RSV Patients and Patients Aged 60 years or older (1 - 1-dose 75+ series) 2043 Zoster Vaccines Completed 02/28/2021, 12/28/2020 Pneumococcal Vaccine: Pediatrics (0 to 5 Years) and At-Risk Patients (6 to 64 Years) Completed 06/02/2024 COVID-19 Vaccine Completed 12/07/2024, 05/2022, 09/21/2021, Additional history exists Hepatitis B Vaccines Completed 12/07/2024, 07/05/2024, 06/03/2024 Influenza Vaccine Completed 12/07/2024, , 10/16/2022, Additional history exists HIB Vaccines Aged Out No longer eligi ble based on patient's age to complete this topic HPV Vaccines Aged Out No longer eligi ble based on patient's age to complete this topic IPV Vaccines Aged Out No longer eligi ble based on patient's age to complete this topic Meningococcal Vaccine Aged Out No makenna karen eligible based on patient's age to complete this topic RSV under 20 months Aged Out No longe r eligible based on patient's age to complete this topic Rotavirus Vaccines Aged Out No longer eligible based on patient's age to complete this topic Procedures Procedure Name Priority Date/Time Associated Diagnosis Comments T-SPOT(R).TB Routine 09/13/2024 3:27 PM EST Tuberculosis screening ALBUMIN, RANDOM URINE W/CREATININE Routine 09/13/2024 3:27 PM EST Type 2 diabetes mellitus without complication, without long-term current use of insulin (CMS/HCC) LIPID PANEL WITH REFLEX TO DIRECT LDL Routine 09/13/2024 3:27 PM EST Type 2 diabetes mellitus without complication, without long-term current use of insulin (CMS/HCC) COMPREHENSIVE METABOLIC PANEL Routine 09/13/2024 3:27 PM EST Type 2 diabetes mellitus without complication, without long-term current use of insulin (CMS/HCC) POCT GLYCATED HEMOGLOBIN, TOTAL Routine 09/13/2024 2:35 PM EST Type 2 diabetes mellitus without complication, without long-term current use of insulin (CMS/HCC) POCT GLUCOSE Routine 09/13/2024 2:34 PM EST Type 2 diabetes mellitus without complication, without long-term current use of insulin (CMS/HCC) from Last 3 Months Results * T-SPOT??.TB (09/13/2024 3:27 PM EST) [facility] T Spot TB Negative Negative [facility] Comment:A negative test resu lt does not exclude the possibilityof exposure to or infection with Mycobacteriumtuberculosis (M. tuberculosis). Patients with recentexposure to TB infected individuals exhibiting anegative T-SPOT.TB result should be considered forretesting within 6 weeks or if other relevant clinicalsymptoms indicate. Results from T-SPOT.TB testing mustbe used in conjunction with each individual'sepidemiological history, current medical status,and results of other diagnostic evaluations.The T-SPOT.TB test is qualitative and results arereported as positive, borderline, or negative, giventhat the test controls perform as expected. In linewith the Centers for Disease Control and Prevention's2010 recommendation to report quantitative measurementsalongside the qualitative result, the laboratoryprovides spot counts for informational purposes only.The T-SPOT.TB test should not be interpreted as aquantitative test. TS PANEL A 2 [facility] TS PANEL B 1 [facility] Negative Control Passed [facility] Positive Control Passed [facility] Comment:For additional infor shen, please refer tohttp://education.Simple Beat/faq/ANF172(This link is being provided for informational/educational purposes only.)THIS TEST WAS PERFORMED AT:[place] [id number] [place] [id number] WHITTEN MD,PHD 09/13/2024 3:27 PM EST 09/13/2024 4:02 PM EST Huyen Ann MD LAB BLOOD ORDERABLES Final Result [facility] [address] [place] [phone] * (ABNORMAL) Lipid Panel with Reflex to Direct LDL (09/13/2024 3:27 PM EST) Triglycerides 388(H) <150 mg/dL [facility] Comment:Desirable Triglyceri de: less than 150 mg/dLBorderline High Triglyceride 150-199 mg/dLHigh Triglyceride: 200-499 mg/dLVery High Triglyceride: greater than or equal to 5OO mg/dL Cholesterol 275(H) <200 mg/dL [facility] Comment:Desirable Cholestero l: less than 200 mg/dLBorderline High Cholesterol: 200-239 mg/dLHigh Cholesterol: greater than 239 mg/dL LDL Cholesterol Calculated 146(H) <100 mg/dL [facility] Comment:Desirable LDL: less than 100 mg/dLNear Optimal/Above Optimal LDL: 110- 129 mg/dLBorderline High LDL: 130-159 mg/dLHigh LDL: 160-189 mg/dLVery High LDL: greater than or equal to 190 mg/dL HDL Cholesterol 52 >40 mg/dL [facility] Comment:Desirable HDL: great er than 40 mg/dL Note: This HDL assay may give artificially low results in patients with liver disease. Blood 09/13/2024 3:27 PM EST 09/13/2024 4:02 PM EST us Huyen Ann MD LAB BLOOD ORDERABLES Final Result Performing Organization Address [facility] de Phone Number [facility] [address] [place] [phone] * Albumin, Random Urine W/Creatinine (09/13/2024 3:27 PM EST) Creatinine, Urine 198.04 mg/dL [facility] Microalbumin Urine 32.0 mg/L [facility] Microalbum Creatinine Ratio Ur 16.1 <30 ug/mg cr [facility] Comment:Albumin/Creatinine R atio Reference Ranges: Normal: < 30 ug/mg creatinine Microalbuminuria: 30 - 300 ug/mg creatinineClinical Albuminuria: > 300 ug/mg creatinine Urine (Urine, Random) 09/13/2024 3:27 PM EST 09/13/2024 4:00 PM EST us Huyen Ann MD LAB URINE ORDERABLES Final Result Performing Organization Address [facility] Co de Phone Number [facility] [address] [place] [phone] * (ABNORMAL) Comprehensive Metabolic Panel (09/13/2024 3:27 PM EST) Sodium 139 135 - 145 mmol/L [facility] Potassium 3.9 3.3 - 5.1 mmol/L [facility] Chloride 101 96 - 108 mmol/L [facility] Carbon Dioxide 24 22 - 29 mmol/L [facility] Anion Gap 18 12 - 20 [facility] Urea Nitrogen (BUN) 19(H) 9 - 16 mg/dL [facility] Creatinine, Serum 1.09 0.5 - 1.4 mg/dL [facility] Estimated Glomerular Filt Rate >60 [facility] Comment:NOTE: For -Am erican individuals, multiply the result by 1.210.Chronic Kidney Disease: Estimated GFR < 60 mL/min/[id number] Kidney Disease: Estimated GFR < 15 mL/min/1.73m2 Glucose 114 60 - 115 mg/dL [facility] Calcium 10.2 8.4 - 10.2 mg/dL [facility] Bilirubin, Total 0.6 0.0 - 1.0 mg/dL [facility] Aspartate Amino Transferase 71(H) 5 - 37 U/L [facility] Comment:Slight Hemolysis.Int erpret result with caution. Alanine Aminotransferase 74(H) 0 - 40 U/L [facility] Total Protein 7.7 6.5 - 8.0 g/dL [facility] Albumin Level 4.7 3.5 - 5.0 g/dL [facility] Alkaline Phosphatase 105 39 - 117 U/L [facility] Blood Venous blood specimen / Unknown 09/13/2024 3:27 PM EST 09/13/2024 4:02 PM EST us Huyen Ann MD LAB BLOOD ORDERABLES Final Result Performing Organization Address City/State/[facility] Co de Phone Number [facility] [address] [place] [phone] * (ABNORMAL) POCT HGB A1C (09/13/2024 2:35 PM EST) Hemoglobin A1C 7.1(A) 4.0 - 6.0 % QC Media Lot # [id number] Lot# Expiration Date Blood 09/13/2024 2:35 PM EST Huyen Ann MD POINT OF CARE TEST EN TER/EDIT ORDERABLES Final Result * POCT Glucose (09/13/2024 2:34 PM EST) Glucose Blood, POC 116 60 - 200 mg/dL QC Media Lot # [id number] Lot# Expiration Date [id number] Blood Capillary blood specimen / Unknown 09/13/2024 2:34 PM EST Huyen Ann MD POINT OF CARE TEST EN TER/EDIT ORDERABLES Final Result from Last [address] [place] [address] - [employer] Care Teams Spray Unit Feeder Relationship Specialty Start Date End Date Huyen Palm MD [address] [place] [phone] PCP - General Family Medicine 03/01/21
--- OUTSIDE RECORDS SUMMARY | 2024-12-07 12:54 | XMS_ITS | Encounter Summary ---
Author Organization [employer] Address [address] [place] [address] [address] [place] [address] Care Team Providers Care Horse Buyer Name Role Phone Huyen Palm MD Primary Care Provide r Reason for Visit * Reason Comments Med Refill Encounter Details Date Type Department Care Team (Late st Contact Info) Description 07/14/2023 Refill [facility] [address] [place] [address] Delma Horowitz FNP [address] [facility] [place] [address] Primary hypertension Social History Tobacco Use Types Packs/Day Years Used Date Smoking Tobacco: Never Passive Smoke Exposure: Never Smokeless Tobacco: Never Depression Answer Date Recorded Patient Health Questionnaire-9 Score 0 02/27/2023 Depression Answer Date Recorded Patient Health Questionnaire-2 Score 0 02/27/2023 Sex and Gender Information Value Date Recorded Sex Assigned at Male 09/09/2022 10:37 AM EDT Legal Sex Male 10:37 AM EDT Gender Identity Male 09/09/2022 10:37 AM EDT Sexual Orientation Straight 09/09/2022 10 :37 AM EDT documented as of this encounter Plan of Treatment Not on file documented as of this encounter Visit Diagnoses Diagnosis Primary hypertension Unspecified essential hypertension documented in this encounter Additional Health Concerns Assessment Noted Time PHQ-9 Depression Total Score: 0 02/28/20 23 9:08 AM EDT documented as of this encounter Care Teams Horse Buyer Relationship Specialty Start Date End Date Huyen Palm MD [address] [place], [place] [phone] PCP - General Family Medicine 03/01/21 documented as of this encounter
--- OUTSIDE RECORDS SUMMARY | 2024-12-07 12:54 | XMS_ITS | Encounter Summary ---
Author Organization [employer] Address [address] [facility] [address] [place] [address] Care Team Providers Care Field Mechanic Name Role Phone Huyen Palm MD Primary Care Provide r Reason for Visit * Reason Comments Med Refill Encounter Details Date Type Department Care Team ([facility] st Contact Info) Description 12/05/2024 Refill [facility] [address] [place], [place] [phone] Huyen Palm MD [address] [place], [place] [phone] Type 2 diabetes mellitus without complication, with long-term current use of insulin ([facility]) Social History Tobacco Use Types Packs/Day Years [...] as of this encounter Visit Diagnoses Diagnosis Type 2 diabetes mellitus without complication, with long-term current use of insulin ([facility]) documented in this encounter Additional Health Concerns Assessment Noted Time PHQ-9 Depression Total Score: 0 06/02/20 24 3:09 PM EDT documented as of this encounter Care Teams Field Mechanic Relationship Specialty Start Date End Date Huyen Palm MD [address] [place] [address] PCP - General Family Medicine 03/01/21 documented as of this encounter
--- OUTSIDE RECORDS SUMMARY | 2024-12-07 12:54 | XMS_ITS | Encounter Summary ---
Author Organization [employer] Address [address] [facility] [address] [place] [address] Care Team Providers Care Director Of Marketing Communications Name Role Phone Huyen Palm MD Primary Care Provide r Encounter Details Date Type Department Care Team (Late st Contact Info) Description 06/04/2023 Orders Only [facility] [address] [place] [address] Jennifer Dodd LPN Social History Tobacco Use [...] of this encounter Care Teams Director Of Marketing Communications Relationship Specialty Start Date End Date Huyen Palm MD [address] [place] [address] PCP - General Family Medicine 03/01/21 documented as of this encounter
--- OUTSIDE RECORDS SUMMARY | 2024-12-07 12:54 | XMS_ITS | Encounter Summary ---
Author Organization [employer] Address [address] [facility] [address] [place] [address] Care Team Providers Care Tongue And Groove Machine Operator Name Role Phone Huyen Palm MD Primary Care Provide r Encounter Details Date Type Department Care Team (Latest Contact Info) Description 12/07/2024 Travel Social History Tobacco Use Types Packs/Day Years [...] documented as of this encounter Care Teams Tong[employer] And Gro[employer] Machine Operator Relationship Specialty Start Date End Date Huyen Plam MD [address] [place] [id number] PCP - General Family Medicine 03/01/21 documented as of this encounter
== END 2024-12-07 11:38 | disposition home or self-care (01) ==
LOC: HO.HHCL 11:37
PROVIDERS: Visit Provider Internal Medicine
DX: Z13.89 Encounter for screening for other disorder (principal)

== ENCOUNTER 2025-09-12 11:56 | Outpatient (REF) | payer OTHER, SELFPAY ==
[2025-09-12 13:21] LABS: Alanine Aminotransferase 35 U/L (0-40); Albumin Level 5.3 g/dL (3.5-5.0); Alkaline Phosphatase 96 U/L (39-117); Anion Gap 10 (12-20); Aspartate Amino Transferase 26 U/L (5-37); Blood Urea Nitrogen 17 mg/dL (9-16); Calcium 9.6 mg/dL (8.4-10.2); Carbon Dioxide 30 mmol/L (22-29); Chloride 105 mmol/L (96-108); Cholesterol 142 mg/dL (<200); Estimated Glomerular Filt Rate > 60; HDL Cholesterol 44 mg/dL (>40); Potassium 4.4 mmol/L (3.3-5.1); Sodium 141 mmol/L (135-145); Total Protein 7.5 g/dL (6.5-8.0); Triglycerides 83 mg/dL (<150)
[2025-09-12 13:40] LABS: Microalbum/Creatinine Ratio Ur 6.5 ug/mg cr (<30)
== END 2025-09-12 11:57 | disposition home or self-care (01) ==
LOC: HO.HHCL 11:56
PROVIDERS: PCP Internal Medicine; Visit Provider Internal Medicine
DX: E11.65 Type 2 diabetes mellitus with hyperglycemia (principal)
CPT/HCPCS: 36415; 80053; 80061; 82043; 82570